=== PATIENT | female | born 1985 | race Caucasian/White ===

== ENCOUNTER 2017-01-13 02:59 | Emergency (ER) | payer SELFPAY ==
[~2017-01-13 02:59] MED LIST: AMPICILLIN PO; PROAIR HFA8.5 GM IH; WELLBUTRIN SR150 M2 PO
[2017-01-13] MEDS ORDERED: ABX FOR ACNE PO (03:21)
[2017-01-13] MEDS ORDERED: TAZORAC TP (03:22)
[2017-01-13] MEDS ORDERED: CULTURELLE1 EAC1 PO (03:22)
[2017-01-13] MEDS ORDERED: BACTRIM DS TAB1 EAC2 PO (04:18)
== END 2017-01-13 04:33 ==
LOC: EDMED 02:59
PROC: 0H99XZZ Drainage of Perineum Skin, External Approach (ICD-10-PCS; principal; 2017-01-13)
DX: L02.215 Cutaneous abscess of perineum (principal); F17.200 Nicotine dependence, unspecified, uncomplicated; Z98.890 Other specified postprocedural states

== ENCOUNTER 2017-01-15 02:18 | Emergency (ER) | payer SELFPAY ==
[~2017-01-15 02:18] MED LIST changes: +ABX FOR ACNE PO; +BACTRIM DS TAB1 EAC2 PO; +CULTURELLE1 EAC1 PO; +TAZORAC TP
== END 2017-01-15 03:02 ==
LOC: EDMED 02:18
DX: Z48.817 Encounter for surgical aftercare following surgery on the skin and subcutaneous tissue (principal); F17.200 Nicotine dependence, unspecified, uncomplicated